=== PATIENT | female | born 1965 | race Caucasian/White ===

== ENCOUNTER 2018-04-20 08:11 | Emergency (ER) | payer OTHER ==
[2018-04-20 08:21] VITALS: BP 136/89
--- NOTE | 2018-04-20 08:58 | UC ---
Lower Extremity/Ankle HPI - HPI Summary HPI Summary: 2-3 DAYS OF INCREASING PAIN AND REDNESS IN LEFT GREAT TOE. IS CONCERNED ABOUT AN INGROWN TOENAIL. NO PAIN WITH WALKING. JUST WITH PRESSURE. - History of Current Complaint Chief Complaint: KIRKkin Stated Complaint: L BIG TOE COMPLAINT Time Seen by Provider: 04/20/18 08:34 Hx Obtained From: Patient Onset/Duration: Gradual Onset, Lasting Days, Still Present Severity Initially: Moderate Severity Currently: Moderate Pain Intensity: 10 - 10/10 WITH PRESSURE Pain Scale Used: 0-10 Numeric Aggravating Factor(s): Other - TOUCH Alleviating Factor(s): Rest Able to Bear Weight: Yes - Allergies/Home Medications Allergies/Adverse Reactions: Allergies Allergy/AdvReac Type Severity Reaction Status Date / Time morphine Allergy Intermediate Nausea Verified 04/20/18 08:22 PMH/Surg Hx/FS Hx/Imm Hx Previously Healthy: Yes - Surgical History Surgical History: Yes Surgery Procedure, Year, and Place: hysterectomy,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 BILATERAL BREAST REDUCTION - Family History Known Family History: Positive: Hypertension - Social History Alcohol Use: Weekly Substance Use Type: None Smoking Status (MU): Never Smoked Tobacco Review of Systems Constitutional: Negative Skin: Other - ERYTHEMA LEFT GREAT TOE Respiratory: Negative Cardiovascular: Negative Gastrointestinal: Negative Musculoskeletal: Edema All Other Systems Reviewed And Are Negative: Yes Physical Exam Triage Information Reviewed: Yes Appearance: Well-Appearing, No Pain Distress, Well-Nourished Vital Signs: Initial Vital Signs Temp 97.8 F 04/20/18 08:17 Pulse 87 04/20/18 08:17 Resp 18 04/20/18 08:17 BP 136/89 04/20/18 08:17 Pulse Ox 96 04/20/18 08:17 Vital Signs Reviewed: Yes Eyes: Positive: Conjunctiva Clear ENT: Positive: Hearing grossly normal Neck: Positive: Supple Respiratory: Positive: No respiratory distress, No accessory muscle use Cardiovascular: Positive: Pulses Normal Abdomen Description: Positive: Soft Musculoskeletal: Positive: ROM Intact Neurological: Positive: Alert Psychological: Positive: Age Appropriate Behavior Skin: Positive: Other - LEFT GREAT TOENAIL INGROWN LATERAL NAIL FOLD. SLIGHT EDEMA AND ERYTHEMA. NO PARONYCHIA Lower Extremity Course/Dx - Course Course Of Treatment: PATIENT DENIES PAIN WITH AMBULATION. IS TRAVELING TO [place] FOR A FEW DAYS TOMORROW SO WOULD PREFER NOT TO HAVE TOENAIL REMOVED TODAY DUE TO THE DISCOMFORT. SHE WILL FOLLOW-UP WITH PODIATRY WHEN SHE RETURNS FROM HER TRIP. WILL GIVE ANTIBIOTICS TO HELP PREVENT INFECTION SETTING IN. HOT SOAKS. - Differential Dx/Diagnosis Provider Diagnoses: LEFT GREAT TOE INGROWN NAIL Discharge - Sign-Out/Discharge Documenting (check all that apply): Patient Departure All imaging exams completed and their final reports reviewed: No Studies - Discharge Plan Condition: Stable Disposition: HOME Prescriptions: Cephalexin CAP* [Keflex 500 CAP*] 1,000 mg PO BID #28 cap Patient Education Materials: Ingrown Nail (ED) Referrals: Mitchel Fermin MD [Primary Care Provider] - If Needed Additional Instructions: WEAR LOOSE FITTING SHOES TO PREVENT PRESSURE ON THE TOE. TAKE THE ANTIBIOTICS PRESCRIBED TO HELP PREVENT INFECTION DEVELOPING. HOT SOAKS 4 TIMES DAILY. FOLLOW-UP WITH PODIATRY WHEN YOU RETURN FROM YOUR TRIP. IBUPROFEN NEEDED FOR DISCOMFORT. PODIATRY IN [facility] Dr. Frederick Persaud [address] [place] Yo Lucia. [address] [place] [address] Please call his office at [phone] to make an appointment to be seen Dr. Jacoby Reza. [address] [place] [address] Dr. Suri Moreira [address] [place] [address] - Billing Disposition and Condition Condition: STABLE Disposition: Home
== END 2018-04-20 09:09 | disposition home or self-care (01) ==
LOC: UCEAST 08:11
DX: L60.0 Ingrowing nail (principal); Z88.5 Allergy status to narcotic agent
CPT/HCPCS: 99212; G0463

== ENCOUNTER 2018-07-05 08:42 | Emergency (ER) | payer OTHER ==
[2018-07-05 08:47] VITALS: BP 128/92
[2018-07-05] MEDS ORDERED: Tetan/Diph/Pertus SYR(Tdap)* 0.5 ML SYR(BOOSTRIX) use SYR IM ONE (09:00)
--- NOTE | 2018-07-05 09:07 | UC ---
Skin Complaint HPI - HPI Summary HPI Summary: 52-year-old woman comes in to clinic with a chief complaint of a laceration to the left ring finger. This occurred last evening approximately 13 hours ago. She was cooking and had a bowl that broke and she cut the radial aspect of the left fourth finger over the DIP. Laceration to centimeter long. She cleaned it with soap and peroxide. It did bleed quite a bit initially. She applied direct pressure which stopped bleeding. This morning she cleaned again in the shower. No active bleeding now. Patient is not sure when she had her last tetanus. Patient is able to move the finger with full range of motion no sensation deficit no loss of strength. - History of Current Complaint Chief Complaint: UCLaceration Time Seen by Provider: 07/05/18 08:52 Stated Complaint: FINGER INJURY Pain Intensity: 1 - Allergy/Home Medications Allergies/Adverse Reactions: Allergies Allergy/AdvReac Type Severity Reaction Status Date / Time morphine Allergy Intermediate Nausea Verified 07/05/18 08:48 Home Medications: Home Medications Omeprazole 20 mg PO DAILY 07/05/18 [History Confirmed 07/05/18] Solifenacin Succinate [Vesicare] 5 mg PO DAILY 07/05/18 [History Confirmed 07/05] Valacyclovir HCl [Valacyclovir] 1 tab PO DAILY 07/05/18 [History Confirmed 07/05] Review of Systems All Other Systems Reviewed And Are Negative: Yes Constitutional: Positive: Negative Skin: Positive: Other - see hpi Eyes: Positive: Negative ENT: Positive: Negative Respiratory: Positive: Negative Cardiovascular: Positive: Negative Gastrointestinal: Positive: Negative Motor: Positive: Negative Neurovascular: Positive: Negative Musculoskeletal: Positive: Other: - see hpi Neurological: Positive: Negative Psychological: Positive: Negative Is Patient Immunocompromised?: No PMH/Surg Hx/FS Hx/Imm Hx GI/ History: Gastroesophageal Reflux - Surgical History Surgical History: Yes Surgery Procedure, Year, and Place: hysterectomy,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 BILATERAL BREAST REDUCTION - Family History Known Family History: Positive: Hypertension - Social History Alcohol Use: Weekly Substance Use Type: None Smoking Status (MU): Never Smoked Tobacco Physical Exam Triage Information Reviewed: Yes Appearance: Well-Appearing, No Pain Distress, Well-Nourished Vital Signs: Initial Vital Signs Temp 98.2 F 11/26/18 08:46 Pulse 92 07/05/18 08:46 Resp 17 07/05/18 08:46 BP 128/92 07/05/18 08:46 Pulse Ox 100 07/05/18 08:46 Vital Signs Reviewed: Yes Eye Exam: Normal Eyes: Positive: Conjunctiva Clear Neck exam: Normal Neck: Positive: Supple Respiratory: Positive: No respiratory distress Musculoskeletal: Positive: Strength Intact, ROM Intact Neurological Exam: Normal Neurological: Positive: Alert, Muscle Tone Normal Psychological Exam: Normal Psychological: Positive: Age Appropriate Behavior Skin: Positive: Other - On the radial aspect of the left fourth finger there is a 1 cm subcutaneous laceration just distal to the DIP. Fingers full range of motion no sensation deficit normal capillary refill. There is no active bleeding. Course/Dx - Course Course Of Treatment: In the clinic there is no active bleeding with range of motion. We discussed sutures versus non-sutures. Given that this is not actively bleeding with full range of motion and being at 13 hours since the laceration I decided not suture the laceration. Patient will be getting her T tap here in clinic. Wound cleaned and dressed by nursing. The plan is to follow-up with any signs of infection or any other concerns. I also discussed with the patient that if her finger feels weak or does not have full range of motion is healing that she needs to get followed up by hand surgeon. I do not see any evidence of tendon injury or nerve injury on examination today. - Diagnoses Provider Diagnoses: LACERATION LEFT 4TH FINGER Discharge - Sign-Out/Discharge Documenting (check all that apply): Patient Departure All imaging exams completed and their final reports reviewed: No Studies - Discharge Plan Condition: Stable Disposition: HOME Patient Education Materials: Finger Laceration (ED), Laceration Without Closure (ED) Referrals: Mitchel Fermin MD [Primary Care Provider] - Additional Instructions: FOLLOW UP WITH YOUR DOCTOR IF NOT COMPLETELY IMPROVED. YOU RECEIVED YOUR TDAP IMMUNIZATION TODAY. GET RECHECKED FOR ANY WORSENING OF YOUR CONDITION; NUMBNESS OR WEAKNESS OR LOSS OF FULL RANGE OF MOTION OF THE FINGER OR QUESTIONS OR CONCERNS. - Billing Disposition and Condition Condition: STABLE Disposition: Home
== END 2018-07-05 09:30 | disposition home or self-care (01) ==
LOC: UCEAST 08:42
DX: S61.215A Laceration without foreign body of left ring finger without damage to nail, initial encounter (principal); W45.8XXA Other foreign body or object entering through skin, initial encounter; Y93.G3 Activity, cooking and baking; Y92.000 Kitchen of unspecified non-institutional (private) residence as the place of occurrence of the external cause; Z88.5 Allergy status to narcotic agent
CPT/HCPCS: 90471; 90715; 99212; G0463

== ENCOUNTER 2018-07-21 08:38 | Emergency (ER) | payer OTHER ==
[2018-07-21 08:52] VITALS: BP 121/82
--- NOTE | 2018-07-21 09:36 | UC ---
General HPI - HPI Summary HPI Summary: Here with concern for finger injury - cut her left fourth digit on 07/05 - was seen at - cleaned and dried. No sutures were placed at that time. Patient states it was healing well. On 07/18 - she noticed some whiteness, feeling tense - and was able to drain pus from it. Was worried about this and came to for further evaluation. Denies any pain. Full range of motion. Occasionally will feel discomfort. NO fever. No further drainage. Has been putting neosporin on it. PMHx & Meds: Reviewed Since drainage - swelling has gone done as well as redness. 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 BILATERAL BREAST REDUCTION - Family History Known Family History: Positive: Hypertension - Social History Alcohol Use: Occasionally Substance Use Type: None Smoking Status (MU): Never Smoked Tobacco Review of Systems All Other Systems Reviewed And Are Negative: No Is Patient Immunocompromised?: No - Comments Additional Review of Systems Comments: Limited ROS due to patient's cc Physical Exam Triage Information Reviewed: Yes Appearance: Well-Appearing Vital Signs: Initial Vital Signs Temp 97.9 F 07/21/18 08:46 Pulse 75 07/21/18 08:46 Resp 16 07/21/18 08:46 BP 121/82 07/21/18 08:46 Pulse Ox 97 07/21/18 08:46 Vital Signs Reviewed: Yes Musculoskeletal: Positive: Other: - left fourth digit - DIP joint lateral mild erythema and edema, no fluctuance or drainage. Laceration healed. No pain with palpatin and FROM of digit and DIP joint Course/Dx - Course Course Of Treatment: This is a 52 year old with 4th digit injury and now concern for wound infection. Assessment. No signs of abscess - nontender. Possible some mild cellulitis. Dx: Cellulitis. Plan. Recommend starting keflex and topical mupiricin as prescribed. Monitor area - If any pain, worsening swelling or redness, return to urgent care or PCP - Diagnoses Provider Diagnosis: Cellulitis Discharge - Sign-Out/Discharge Documenting (check all that apply): Patient Departure All imaging exams completed and their final reports reviewed: No - Discharge Plan Condition: Good Disposition: HOME Prescriptions: Cephalexin CAP* [Keflex CAP*] 500 mg PO TID #15 cap Mupirocin 2% OINT* [Bactroban 2 % Oint*] 1 applic TOPICAL BID #1 tube Patient Education Materials: Cellulitis (DC) Referrals: Mitchel Fermin MD [Primary Care Provider] - Additional Instructions: Recommend starting keflex and topical mupiricin as prescribed Monitor area - If any pain, worsening swelling or redness, return to urgent care or PCP - Billing Disposition and Condition Condition: GOOD Disposition: Home
--- NOTE | 2018-07-22 11:04 | UC ---
- Progress Note Progress Note: There was no x-ray ordered on July 21, 2018 therefore there is no discrepancy. Course/Dx - Diagnoses Provider Diagnoses: Cellulitis Discharge - Sign-Out/Discharge Documenting (check all that apply): Patient Departure All imaging exams completed and their final reports reviewed: Yes - Discharge Plan Condition: Good Disposition: HOME Prescriptions: Cephalexin CAP* [Keflex CAP*] 500 mg PO TID #15 cap Mupirocin 2% OINT* [Bactroban 2 % Oint*] 1 applic TOPICAL BID #1 tube Patient Education Materials: Cellulitis (DC) Referrals: Mitchel Fermin MD [Primary Care Provider] - Additional Instructions: Recommend starting keflex and topical mupiricin as prescribed Monitor area - If any pain, worsening swelling or redness, return to urgent care or PCP - Billing Disposition and Condition Condition: GOOD Disposition: Home
--- NOTE | 2018-07-22 11:08 | UC ---
- Progress Note Progress Note: . Course/Dx - Diagnoses Provider Diagnoses: Cellulitis Discharge - Sign-Out/Discharge Documenting (check all that apply): Patient Departure All imaging exams completed and their final reports reviewed: No Studies - Discharge Plan Condition: Good Disposition: HOME Prescriptions: Cephalexin CAP* [Keflex CAP*] 500 mg PO TID #15 cap Mupirocin 2% OINT* [Bactroban 2 % Oint*] 1 applic TOPICAL BID #1 tube Patient Education Materials: Cellulitis (DC) Referrals: Mitchel Fermin MD [Primary Care Provider] - Additional Instructions: Recommend starting keflex and topical mupiricin as prescribed Monitor area - If any pain, worsening swelling or redness, return to urgent care or PCP - Billing Disposition and Condition Condition: GOOD Disposition: Home
== END 2018-07-21 09:47 | disposition home or self-care (01) ==
LOC: UCEAST 08:38
DX: L03.012 Cellulitis of left finger (principal); Z88.5 Allergy status to narcotic agent
CPT/HCPCS: 99212; G0463